=== PATIENT | female | born 1975 | race Caucasian/White ===

== ENCOUNTER 2017-02-28 21:00 | Emergency (ER) | payer OTHER ==
[~2017-02-28] VITALS: Ht 162.6 cm; Wt 74.0 kg
[2017-02-28 21:11] VITALS: BP 128/74; PULSE 86; RESP 18; O2SAT 100
[2017-02-28] MEDS ORDERED: Trimethoprim-Sulfa 160 mg-800 mg Tablet PO ONE (21:30)
[2017-02-28] MEDS ORDERED: Phenazopyridine 97.5 mg Tablet PO ONE (21:30)
--- NOTE | 2017-02-28 21:32 | ED.REPORT ---
HPI-Abd Pain F 40 and Over Date of Service Feb 28, 2017 ED Provider: Jose Red MD 41 y/o female with a hx of bladder infection (3 years ago) presents to the ED complaining of dysuria, onset a week ago. Associated sx include urinary frequency and urgency, pelvic pain, flank pain and subjective fever. The pt states "it feels like someone is pounding on my bladder". The pt's menstrual period started this week. Nursing Notes Stated Complaint: PELVIC PAIN AND URINARY URGENCY Chief Complaint: Female Abdominal Pain Nursing Notes Reviewed: Yes Allergies: Coded Allergies: amoxicillin (Verified Allergy, Mild, Redness, swelling, 02/28/17) Scheduled Sulfamethoxazole/Trimeth 800-160 mg (Bactrim DS) 1 Each Tablet 1 TABLET PO BID Scheduled PRN Phenazopyridine (Pyridium) 200 Mg Tablet 200 MG PO TID PRN PRN dysuria General Time Seen by MD: 21:30 Chief Complaint Dysuria Hx Obtained From: Patient Arrived By: Walk-in Sudden in Onset?: No Onset Occurred: 1 week ago Symptom Duration: Since onset Location: : Back: Flank right: Pelvis Quality: Painful Radiation: : Does not radiate Severity: Current: Mild Severity: Maximum: Moderate Recent Healthcare: No recent doctor visit Similar Sx Previous: Yes Past Medical History Past Medical History bladder infection (3 years ago) Past Surgical History none reported Smoking History Unknown if Ever Smoker Social History Other Social History: Good social support, Ambulatory Status Independent Review of Systems Reports: pelvic pain and flank pain Constitutional: Reports: Fever (subjective) Female: Reports: Dysuria, Urinary frequency, Urinary urgency Musculoskeletal: Reports: Back pain Complete sys rev & neg: except as marked. Physical Exam Vital Signs Vital Signs (First) Date Time Temp Pulse Resp B/P Pulse Ox O2 Delivery O2 Flow Rate FiO2 02/28/17 21:11 36.2 86 18 128/74 100 Room Air Initial VS: Reviewed, Vital signs normal Head / Eyes: Atraumatic, Normocephalic Neck: Supple, Non-tender, Full range of motion Extremities: Vascular intact, Neuro intact, No swelling, No tenderness Skin: Warm, Dry, No cyanosis Neurologic: Alert, Oriented, Nonfocal General/Constitutional: Awake, Alert, No acute distress, Well appearing, Cooperative Respiratory / Chest: Atraumatic, No respiratory distress, No wheezing Cardiovascular: Heart rate NL, Regular rhythm, Pulses = bilaterally Abdomen: Atraumatic, Soft, Non-tender Back: Atraumatic, Full range of motion, Painless range of motion, No CVA tenderness Interpretation & Diagnostics Lab Results Interpretation Test 02/28/17 21:00 Urine Color Yellow (YELLOW) Urine Appearance Slightly cloudy Urine pH 6.0 (5.0-8.0) Urine Specific [place] 1.026 (1.003-1.035) Urine Protein Negativemg/dL (NEG,TRACE) Urine Glucose (UA) Negativemg/dL (NEGATIVE) Urine Ketones Negativemg/dL (NEGATIVE) Urine Occult Blood Moderate (NEGATIVE) Urine Nitrite Negative (NEGATIVE) Urine Bilirubin Negative (NEGATIVE) Urine Urobilinogen Normalmg/dL (NORMAL) Urine Leukocyte Esterase Trace (NEGATIVE) Urine RBC 11-50/hpf (0-2) Urine WBC 11-50/hpf (0-5) Urine Epithelial Cells Moderate/hpf (NONE-MOD) Urine Crystals None seen (NONE SEEN) Urine Bacteria Few/hpf (NONE-FEW) Urine Hyaline Casts None/lpf (NONE) Urine Granular Casts None seen (NONE SEEN) Urine Waxy Casts None seen (NONE SEEN) Urine Red Blood Cell Casts None seen (NONE SEEN) Urine White Blood Cell Casts None seen (NONE SEEN) Urine Mucus Present (None Seen) Urine Trichomonas None seen (NONE SEEN) Urine Yeast None (NONE SEEN) Urinalysis Comment None Urine Culture Reflexed Indicated Lab Results Interpretation: Test: Negative Re-Eval/Medical Decision Re-Evaluation/Progress : Time of Eval: 21:38 Re-Evaluation/Progress Note: Discussed lab results, diagnosis and plan to discharge. Pt understands and agrees with the plan. F/U instructions and RTER warning given. All questions addressed. Counseled Regarding: Diagnosis, Lab results, Need for follow-up, When/why to return to ED Discharge & Departure Primary Impression: Urinary tract infection Urinary tract infection type: acute cystitis Hematuria presence: without hematuria Qualified Code: N30.00 - Acute cystitis without hematuria Disposition: Home Discharge Condition All VS Reviewed: Yes Condition: Stable Patient Instructions: Urinary Tract Infection in Women (ED) Additional Instructions: Emergency department evaluation today included review, examination and urinalysis. It appears that you have a urinary tract infection. This should improve on antibiotics, take the trimethoprim sulfa twice daily for 5 days. Pyridium one up to 3 times a day as needed for painful urination. Return emergency Department for fevers, shaking chills or vomiting. Follow-up with primary care in about 1 week to confirm cure. Referrals: OTHER,PHYSICIAN (PCP) Scribe Attestation Portions of this note were transcribed by Latisha Bonilla. I, , personally performed the history, physical exam and medical decision- making;I reviewed and confirmed the accuracy of the information in the transcribed note. Signed by Patricio Kidd. 02/28/17 22:20 Jose Red MD Feb 28, 2017 21:31 Latisha Bonilla Feb 28, 2017 22:15
[2017-02-28 21:40] LABS: APPEARANCE,URINE SLIGHTLY CLOUDY (CLEAR,HAZY); COLOR,URINE YELLOW (YELLOW); OCCULT BLOOD,URINE MODERATE (NEGATIVE); UROBILINOGEN,URINE NORMAL (NORMAL)
[2017-02-28] MEDS ORDERED: SULF1TAB7 PO (21:59)
[2017-02-28] MEDS ORDERED: PHEN-684 PO (21:59)
== END 2017-02-28 22:08 | disposition home or self-care (01) ==
LOC: SED 21:00
DX: N30.00 Acute cystitis without hematuria (principal); B96.20 Unspecified Escherichia coli [E. coli] as the cause of diseases classified elsewhere; Z87.440 Personal history of urinary (tract) infections; Z88.0 Allergy status to penicillin